=== PATIENT | male | born 1970 | race Native Hawaiian/Other Pacific Islander ===

== ENCOUNTER 2019-02-13 10:43 | Emergency (ER) | payer BC ==
[~2019-02-13] VITALS: Ht 162.6 cm; Wt 93.0 kg
[~2019-02-13 10:43] MED LIST: CEPH500C20 PO; CYCL10TA35 PO; HYDACET7.5 PO; KETOROLAC15 MG/ML IJ; MELO-13 PO; METHYLPR SS125 MG IJ; OXCARBAZEPIN600 MG PO
[2019-02-13 11:45] VITALS: BP 132/90; TEMP 98.2
== END 2019-02-13 11:48 | disposition home or self-care (01) ==
LOC: ED 10:43
PROC: 0HQFXZZ Repair Right Hand Skin, External Approach (ICD-10-PCS; principal; 2019-02-13)
DX: S66.421A Laceration of intrinsic muscle, fascia and tendon of right thumb at wrist and hand level, initial encounter (principal); W27.8XXA Contact with other nonpowered hand tool, initial encounter
CPT/HCPCS: 90471; 90715; 99282

== ENCOUNTER 2020-05-01 10:47 | Outpatient (CLI) | payer OTHER | END 2020-05-01 23:01 | disposition home or self-care (01) | LOC: RAD 10:47 | DX: M54.9 Dorsalgia, unspecified (principal); M79.2 Neuralgia and neuritis, unspecified; M51.26 Other intervertebral disc displacement, lumbar region ==

== ENCOUNTER 2021-10-08 08:19 | Outpatient (CLI) | payer OTHER | END 2021-10-08 18:56 | disposition home or self-care (01) | LOC: MRI 08:19 | PROVIDERS: ATTEND Psychiatry & Neurology Neurology | DX: M43.02 Spondylolysis, cervical region (principal) ==